=== PATIENT | male | born 1995 | race Caucasian/White ===

== ENCOUNTER 2020-02-08 17:53 | Emergency (ER) | payer SELFPAY ==
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
[2020-02-08] MEDS ORDERED: Acetaminophen/HYDROcodone 325-5 MG Tab PO ONE (19:46)
--- NOTE | 2020-02-08 20:33 | CR ---
Right ankle: 4 views of the right ankle were obtained. Comparison: No previous ankle study. Ankle mortise is symmetric. No fracture, dislocation or other bony abnormality is seen. Impression: 1. No abnormality is identified on right ankle exam. Diagnostic code #1 Study was dictated in MDT
--- NOTE | 2020-02-08 20:33 | CR ---
Right foot: 4 views of the right foot were obtained. Comparison: No prior foot exam is available. Fracture is identified within the navicular bone. Soft tissue swelling is noted. No additional fracture or other bony abnormality is appreciated. Impression: 1. Navicular bone fracture with soft tissue swelling. Diagnostic code #3 Study was dictated in MDT
== END 2020-02-08 20:30 | disposition home or self-care (01) ==
LOC: JD.ED 17:53
DX: S92.254A Nondisplaced fracture of navicular [scaphoid] of right foot, initial encounter for closed fracture (principal); F90.9 Attention-deficit hyperactivity disorder, unspecified type; F17.210 Nicotine dependence, cigarettes, uncomplicated; Z91.030 Bee allergy status; Z79.899 Other long term (current) drug therapy; V89.2XXA Person injured in unspecified motor-vehicle accident, traffic, initial encounter; Y92.410 Unspecified street and highway as the place of occurrence of the external cause
CPT/HCPCS: 73610; 73630; 99283; A9270